=== PATIENT | female | born 1980 | race African-American/Black ===

== ENCOUNTER 2017-09-09 11:36 | Observation (INO) ==
[2017-09-09] MEDS ORDERED: Temazepam 15 MG Capsule PO PRN (19:40)
--- NOTE | 2017-09-09 20:18 | P.HP ---
History of Present Illness Primary Care Physician: UNKNOWN Chief Complaint: Chest pain, palpitations History of Present Illness: 36-year-old female with known history of migraine cephalgia, vertigo who presented to the hospital for evaluation of chest pain, palpitations. Patient states that approximate 1 week ago she was treated for vertigo and has been doing well. She went to her primary medical doctor who is performing further testing to include MRI of the brain with and without contrast due to her recent vertigo, she is also referred to a fire truck driver who is doing outpatient workup to include stress test, echocardiogram, Holter monitor. She indicates that she did follow-up with her prior medical doctor and they indicated that she had an abnormal EKG and needed the further evaluation performed. Patient was in her normal state of health until she was at [employer] today and she started feeling the palpitations again and that she developed a tightness in her chest without any radiation to the neck, back, shoulder, arm. Patient states that she did not have any shortness of breath, dyspnea, lightheadedness, diaphoresis. The patient persisted so she came to emergency department for evaluation. Patient was given aspirin in the emergency department with complete resolution of her discomfort. It was recommended by the ER physician the patient be observed in the hospital for further evaluation and management. - Diagnosis (1) Chest pain (2) Heart palpitations Review of Systems All other systems reviewed negative except as stated in HPI Cardiovascular: Reports chest pain, Reports irregular heart rhythm, Reports lightheadedness PMFSH - History History Provided By: Patient - Medical History Medical History: Medical History (Last Updated 09/09/17 @ 20:16 by SOLEDAD Pagan) Migraines Vertigo - Surgical History Surgical History: Surgical History (Last Reviewed 09/09/17 @ 20:16 by SOLEDAD Pagan) History of endometrial ablation Hx of removal of cyst Hx of tubal ligation - Tobacco History Second Hand Smoke Exposure: No Smoking Status: Never smoker - Alcohol History How Often Do You Have a Drink Containing Alcohol: Never - Substance Use History Substance History: No History of Abuse - Immunization History Tetanus Immunization Year if Known: 2016 Medications and Allergies Active Medications: Active Medications Acetaminophen (Tylenol) 500 mg PO Q4H PRN PRN Reason: HEADACHE Aspirin (Aspirin) 325 mg PO DAILY CHARLINE Sodium Chloride (Ns Inj) 1,000 mls @ 100 mls/hr IV.CONT .Q10H CHARLINE Nitroglycerin (Nitrostat Sl) 0.4 mg SL Q5M PRN PRN Reason: CHEST PAIN Sodium Chloride (Ns Flush) 2 ml IV.FLUSH BID CHARLINE Sodium Chloride (Ns Flush) 2 ml IV.FLUSH PRN PRN PRN Reason: FLUSH AFTER USING IV ACCESS Temazepam (Restoril) 15 mg PO HS PRN PRN Reason: INSOMNIA Allergies Allergy/AdvReac Type Severity Reaction Status Date / Time butorphanol [From Stadol] Allergy Shortness Verified 09/03/17 12:53 of Breath Home Medications Medication Instructions Recorded Confirmed Type [id number] 1 cap PO Q4H PRN 09/03/17 09/03/17 History [Fioricet] meclizine 12.5 mg PO TID PRN 09/03/17 09/03/17 History ondansetron [Zofran ODT] 4 mg PO Q8H PRN 09/03/17 09/03/17 History Exam Vital signs: Intake & Output 09/09/17 09/09/17 09/10/17 06:59 18:59 06:59 Weight 87.997 kg Other: Weight On Admission 87.997 kg Narrative: GENERAL: Well-developed, well-nourished, in no acute distress. alert and orientated HEENT: Head is normocephalic without any lesions or masses noted. Facial features are symmetric. Eyes: Pupils equal round reactive to light. Extraocular muscles are intact. Conjunctivae were clear. Oropharyngeal: Pharynx without any erythema edema. Tongue is midline without deviation. Buccal mucosa is moist without any masses or lesions NECK: Supple without any masses. Trachea midline no deviation. No JVD, no bruits are appreciated CARDIAC: Regular rhythm, regular rate. S1/S2 are heard. No murmurs gallops or rubs. LUNGS: Clear to auscultation bilaterally. No wheeze, rhonchi or rales. No use of accessory muscles on inspiration or expiration. ABDOMEN: Soft, nontender. Nondistended. Bowel sounds heard in all 4 quadrants. No organomegaly or masses. Negative rebound, negative guarding EXTREMITIES: No edema, pulses are equal bilaterally. No cyanosis or clubbing NEUROLOGY: Mood and affect appear appropriate. Cranial nerves II through XII grossly intact. Muscle strength 5/5 in upper and lower extremities bilaterally. Deep tendon reflexes are 2+ in upper and lower extremities bilaterally. Caprini VTE Risk Assessment Caprini VTE Risk Assessment: No/Low Risk (score <= 1) Caprini Risk Assessment Model: Point Value = 1 Point Value = 2 Point Value = 3 Point Value = 5 Age 41-60 Minor surgery BMI > 25 kg/m2 Swollen legs Varicose veins or History of unexplained or recurrent spontaneous Oral contraceptives or hormone replacement Sepsis (< 1 month) Serious lung disease, including pneumonia (< 1 month) Abnormal pulmonary function Acute myocardial infarction Congestive heart failure (< 1 month) History of inflammatory bowel disease Medical patient at bed rest Age 61-74 Arthroscopic surgery Major open surgery (> 45 min) Laparoscopic surgery (> 45 min) Malignancy Confined to bed (> 72 hours) Immobilizing plaster cast Central venous access Age >= 75 History of VTE Family history of VTE Factor V Leiden Prothrombin [id number] Lupus anticoagulant Anticardiolipin antibodies Elevated serum homocysteine Heparin-induced thrombocytopenia Other congenital or acquired thrombophilia Stroke (< 1 month) Elective arthroplasty Hip, pelvis, or leg fracture Acute spinal cord injury (< 1 month) Prophylaxis Regimen: Total Risk Factor Score Risk Level Prophylaxis Regimen 0-1 Low Early ambulation 2 Moderate Order ONE of the following: *Sequential Compression Device (SCD) *Heparin 5000 units SQ BID 3-4 Higher Order ONE of the following medications: *Heparin 5000 units SQ TID *Enoxaparin/Lovenox 40 mg SQ daily (WT < 150 kg, CrCl > 30 mL/min) *Enoxaparin/Lovenox 30 mg SQ daily (WT < 150 kg, CrCl > 10-29 mL/min) *Enoxaparin/Lovenox 30 mg SQ BID (WT < 150 kg, CrCl > 30 mL/min) AND/OR *Sequential Compression Device (SCD) 5 or more Highest Order ONE of the following medications: *Heparin 5000 units SQ TID (Preferred with Epidurals) *Enoxaparin/Lovenox 40 mg SQ daily (WT < 150 kg, CrCl > 30 mL/min) *Enoxaparin/Lovenox 30 mg SQ daily (WT < 150 kg, CrCl > 10-29 mL/min) *Enoxaparin/Lovenox 30 mg SQ BID (WT < 150 kg, CrCl > 30 mL/min) AND *Sequential Compression Device (SCD) Assessment and Plan - Assessment (1) Chest pain Code(s): R07.9 - Chest pain, unspecified Status: Acute (2) Heart palpitations Code(s): R00.2 - Palpitations Status: Acute - Plan Chest pain, atypical -Patient with no significant risk factors -We will continue ruled patient out for acute coronary event with serial cardiac enzymes and serial EKGs -The patient ruled out for acute coronary event could possibly perform exercise stress test in the morning to rule out any underlying ischemia -Continue aspirin, nitroglycerin as needed -Continue oxygen Palpitations -TSH is unremarkable -Patient be placed on telemetry, will monitor that for any abnormal arrhythmia DVT prevention -Sequential compression devices
[2017-09-09 20:43] LABS: Creatine Kinase 68 U/L (26-192)
[2017-09-09] MEDS: Sod Chloride 0.9% Inj 1,000 ML IV.CONT SCH (20:53)
[2017-09-09 23:41] LABS: Creatine Kinase 75 U/L (26-192)
[2017-09-09] MEDS: Acetaminophen 500 MG Tablet PO PRN (23:52)
[2017-09-10] MEDS: Sod Chloride 0.9% Inj 1,000 ML IV.CONT SCH (05:39)
[2017-09-10] MEDS ORDERED: Aspirin 325 MG Tablet PO SCH (09:00)
--- NOTE | 2017-09-10 09:06 | P.PN ---
Subjective Interval history: 36-year-old female who is seen and examined today in follow-up for palpitations , chest discomfort. Patient has not had any recurrent chest pain. States that she still feel the palpitations. Vital signs remained stable, patient afebrile Physical Exam Vital signs: Vital Signs 09/09/17 20:00 09/09/17 20:45 09/10/17 00:00 Temperature 98.4 F 98.7 F Pulse Rate 69 81 Respiratory Rate 18 18 Blood Pressure 158/96 H 159/95 H Pulse Oximetry 100 97 98 09/10/17 08:00 Temperature Pulse Rate Respiratory Rate Blood Pressure Pulse Oximetry 94 L Intake & Output 09/09/17 09/10/17 09/10/17 18:59 06:59 18:59 Intake Total 1000 / 1000 Balance 1000 / 1000 Weight 87.997 kg 86.3 kg Intake: IV 1000 / 1000 NS Inj 1,000 ML @ 100 mls/hr IV 1000 / 1000 .CONT .Q10H CHARLINE Rx#:[id number] Oral Supplement 0 / 0 Other: # Voids 4 Date of Last Bowel Movement 09/08/17 Weight On Admission 87.997 kg Narrative: GENERAL: Well-developed, well-nourished, in no acute distress. alert and orientated HEENT: Head is normocephalic without any lesions or masses noted. Facial features are symmetric. Eyes: Extraocular muscles are intact. Conjunctivae were clear. NECK: Supple without any masses. Trachea midline no deviation. No JVD, CARDIAC: Regular rhythm, regular rate. S1/S2 are heard. No murmurs gallops or rubs. LUNGS: Clear to auscultation bilaterally. No wheeze, rhonchi or rales. No use of accessory muscles on inspiration or expiration. ABDOMEN: Soft, nontender. Nondistended. Bowel sounds heard in all 4 quadrants. No organomegaly or masses. Negative rebound, negative guarding EXTREMITIES: No edema, pulses are equal bilaterally. No cyanosis or clubbing NEUROLOGY: Mood and affect appear appropriate. Cranial nerves II through XII grossly intact. Moving all extremities, speech is clear Results - Labs Laboratory Results - last 24 hr 09/09/17 09/09/17 20:05 22:55 Total Creatine Kinase 68 75 Troponin I Less than 0.02 L Less than 0.02 L Assessment and Plan - Assessment (1) Chest pain Code(s): R07.9 - Chest pain, unspecified Status: Inactive (2) Heart palpitations Code(s): R00.2 - Palpitations Status: Inactive - Plan Chest pain, atypical -Patient with no significant risk factors -Patient has been ruled out for acute coronary event with serial cardiac enzymes that are negative -Serial EKGs were reviewed by myself which did indicate PVC, nonspecific T-wave abnormalities, no acute changes noted -Patient was unable to perform exercise stress test, myocardial perfusion study was performed which was completely negative without any signs of ischemia, low risk -Continue aspirin, nitroglycerin as needed -Continue oxygen Palpitations, rare PVCs -TSH is unremarkable -Patient be placed on telemetry, will monitor that for any abnormal arrhythmia -Discussed with the patient that she does have rare PVCs seen on telemetry as well as EKGs. Notified her that her migraine medication Fioricet does have significant dose of caffeine in which can antagonize and cause her PVCs. Would recommend she follow-up with her prior medical doctor after her workup is complete and discuss possible change in medications. DVT prevention -Sequential compression devices Discharge Planning: Discharge home in stable condition Activity: Ad hernan. Diet: Healthy heart diet Medication per medication reconciliation Follow-up with primary medical doctor in 1 week
[2017-09-10] MEDS: Acetaminophen 500 MG Tablet PO PRN (13:08)
--- NOTE | 2017-09-10 16:15 | NM ---
EXAM DATE: 09/10/2017 3:52 PM EDT AGE/SEX: 36 years / Female INDICATIONS:Angina. . Chest pain with palpitations. CLINICAL DATA: This is the patient's initial encounter. Patient reports that signs and symptoms have been present for 1 day and indicates a pain score of 4/10. MEDICAL/SURGICAL HISTORY: . Migraines. Vertigo. Tubal ligation. COMPARISON: No prior exams available for comparison. DOSE: 26.7 mCi Tc 99m Myoview at stress 8.7 mCi [id number] at rest 0.4 mg Lexiscan STRESS SYMPTOMS: Palpitations, headache and nausea. EJECTION FRACTION: 70 % TECHNIQUE: The patient underwent pharmacologic stress with infusion of prescribed dose. Continuous ECG tracing was monitored during stress. Gated SPECT imaging was performed after stress and conventi onal SPECT imaging was performed at rest. The examination was performed on a SPECT/CT scanner, both attenuation and non-corrected datasets were reviewed. FINDINGS: Distribution: The maximum perfused segment at stress is in the lateral wall. Perfusion Study: The pattern of perfusion at stress is within normal limits. Gated Study: There are intact wall motion and wall thickening without hypokinetic or dyskinetic segm ents. The ejection fraction is calculated at 70%. RISK CATEGORY: Low (<1% Annual Motality Rate) CONCLUSION: Negative examination. Electronically signed by: Johnson Larry MD 09/10/2017 4:13 PM EDT
[2017-09-10] MEDS ORDERED: Regadenoson Inj 0.4 MG/5 ML Syringe IV.PUSH ONE (18:06)
--- NOTE | 2017-09-11 00:02 | ECG ---
Date Performed: 09/09/2017 Time Performed: 22:51:32 PTAGE: 36 years EKG: Sinus rhythm WITH OCCASIONAL VENTRICULAR PREMATURE COMPLEXES MODERATE T-WAVE ABNORMALITY, CONSIDER LATERAL ISCHEM IA ABNORMAL ECG PREVIOUS TRACING : 09/09/2017 20.11 Since the previous tracing, no significant change noted DOCTOR: Tobin Carvalho Interpretating Date/Time 09/11/2017 00:01:27
--- NOTE | 2017-09-11 00:19 | ECG ---
Date Performed: 09/09/2017 Time Performed: 20:11:27 PTAGE: 36 years EKG: Sinus rhythm WITH OCCASIONAL VENTRICULAR PREMATURE COMPLEXES NONSPECIFIC T-WAVE ABNORMALITY ABNORMAL ECG PREVIOUS TRACING : 01/20/2014 08.54 Since the previous tracing, no significant change noted DOCTOR: Tobin Carvalho Interpretating Date/Time 09/11/2017 00:18:34
--- NOTE | 2017-09-11 10:06 | TR ---
Date Performed: 09/10/2017 Time Performed: 14:53:17 DOCTOR: Fay Ahmadi DRUG LIST: CLINICAL HISTORY: REASON FOR TEST: Chest pain REASON FOR ENDING: OBSERVATION: CONCLUSION: Lexiscan stress test was performed under standard four minute protocol. Radionuclid e was injected one minute prior to ending the test. No electrocardiographic abormalities were present to suggest ischemia. Nuclear imaging and interpretation are pending. COMMENTS: no ischemia
== END 2017-09-10 18:01 | disposition home or self-care (01) ==
LOC: PHEDDLT 11:36 → PH3 11:36
PROVIDERS: ADMIT Family Medicine; ATTEND Family Medicine